=== PATIENT | female | born 1970 | race Caucasian/White ===

== ENCOUNTER 2020-02-15 13:07 | Outpatient (CLI) | payer MEDICAID ==
[~2020-02-15] VITALS: Ht 162.6 cm; Wt 57.6 kg
[2020-02-15 14:42] LABS: BASOPHILS # (AUTO) 0.1 X10'3 (0-0.2); BASOPHILS % (AUTO) 0.8 % (0-1); EOSINOPHILS # (AUTO) 1.2 X10'3 (0-0.9); EOSINOPHILS % (AUTO) 15.5 % (0-6); LYMPHOCYTES # (AUTO) 2.6 X10'3 (1.1-4.8); LYMPHOCYTES % (AUTO) 34.5 % (21-51); MEAN CORPUSCULAR HEMOGLOBIN 30.8 PG (27.0-31.0); MEAN CORPUSCULAR HGB CONC 32.9 g/dL (33.0-36.5); MEAN CORPUSCULAR VOLUME 93.5 FL (78-98); MEAN PLATELET VOLUME 10.7 FL (7.4-10.4); MONOCYTES # (AUTO) 0.3 X10'3 (0-0.9); NEUTROPHILS # (AUTO) 3.4 X10'3 (1.8-7.7); NEUTROPHILS % (AUTO) 45.2 % (42-75); PRE OP HEMATOCRIT 26.7 % (35.0-45.0); PRE OP PLATELET COUNT 131 X10'3 (140-440); RED BLOOD COUNT 2.86 X10'6 (4.20-5.60); RED CELL DISTRIBUTION WIDTH 13.8 % (11.5-14.5)
[2020-02-15 14:45] LABS: PRE OP HEMOGLOBIN 8.8 g/dL (12.0-16.0)
[2020-02-15 14:56] LABS: ALBUMIN 3.6 G/DL (3.4-5.0); ALBUMIN/GLOBULIN RATIO 1.2 (1.1-1.5); ALKALINE PHOSPHATASE 75 IU/L (46-116); BLOOD UREA NITROGEN 43 MG/DL (7-18); BUN/CREATININE RATIO 14.9 (6.6-38.0); CALCIUM 8.8 MG/DL (8.5-10.1); CHLORIDE 108 MMOL/L (99-107); CREATININE 2.88 MG/DL (0.40-0.90); PRE OP ALT 21 U/L (30-65); PRE OP ANION GAP 8 (8-16); PRE OP AST 12 U/L (10-37); PRE OP BILIRUB, TOTAL 0.1 MG/DL (0.0-1.0); PRE OP GLUCOSE 191 MG/DL (70-104); PRE OP POTASSIUM 5.4 MMOL/L (3.4-5.1); PRE OP SODIUM 140 MMOL/L (135-145); TOTAL CARBON DIOXIDE 23.9 MMOL/L (24-32); TOTAL PROTEIN 6.7 G/DL (6.4-8.2); eGFR 17 ML/MIN
[2020-02-15 15:25] LABS: LARGE PLATELETS FEW; PLATELET ESTIMATE DECREASED
[2020-02-15] MEDS ORDERED: ESCI20TA PO (17:39)
[2020-02-15] MEDS ORDERED: TRAZ-256 PO (17:39)
[2020-02-15] MEDS ORDERED: INSU100C10 SQ (17:39)
[2020-02-15] MEDS ORDERED: INSU100I31 SQ (17:39)
[2020-02-15] MEDS ORDERED: LISI-600 PO (17:39)
[2020-02-15] MEDS ORDERED: VITAMIN D3 PO (17:39)
[2020-02-15] MEDS ORDERED: BUPR200T34 PO (17:39)
[2020-02-22] MEDS ORDERED: BUPR100T7 PO (11:12)
[2020-02-22] MEDS ORDERED: CHOL200013 PO (11:17)
[2020-02-23] MEDS ORDERED: ringers solution, lacted 1,000 ML IV SCH (05:00)
[2020-02-23] MEDS ORDERED: famotidine 20mg tablet PO ONE (05:30)
[2020-02-23] MEDS ORDERED: ceFAZolin 2gm in dextrose, iso 50 ML IV ONE (05:30)
[2020-02-23] MEDS ORDERED: VANCOMYCIN INJ 1000 MG in NORMAL SALINE 250ml IV.SOLN IV ONE (05:30)
== END 2020-02-15 23:29 | disposition home or self-care (01) ==
LOC: PRE-OP 13:07 → EDSTATUS 02-23 11:00
PROVIDERS: ATTEND Orthopaedic Surgery
DX: Z01.818 Encounter for other preprocedural examination (principal); S81.019A Laceration without foreign body, unspecified knee, initial encounter; M17.10 Unilateral primary osteoarthritis, unspecified knee; X58.XXXA Exposure to other specified factors, initial encounter; Y93.89 Activity, other specified; Y92.89 Other specified places as the place of occurrence of the external cause; Y99.8 Other external cause status; Z11.59 Encounter for screening for other viral diseases
CPT/HCPCS: 36415; 80053; 85025; 93005; U0003